=== PATIENT | female | born 1935 | race Caucasian/White ===

== ENCOUNTER 2016-12-28 19:16 | Inpatient (IN) | payer MEDICARE, MEDICAID ==
[~2016-12-28] VITALS: Ht 160 cm; Wt 49.9 kg
--- NOTE | 2016-12-28 19:18 | NUR ---
PT BIBRA FROM SNF TO ER BED 11 C/O DIFFUSE ABDOMINAL PAIN WORST IN THE LOWER QUADRANT. ABDOMEN APPEARS DISTENDED. PT DENIES N/V/D. PLACED ON MONITOR. NAD NOTED. AWAITING MD BENAVIDES.
--- NOTE | 2016-12-28 19:44 | NUR ---
DR DUMONT AT BEDSIDE FOR EVAL.
--- NOTE | 2016-12-28 19:55 | NUR ---
IV LINE STARTED BLOOD DRAWN AND SENT TO LAB.
[2016-12-28 19:59] LABS: EOSINOPHILS # (AUTO) 0.3 /CMM (0.0-0.7)
[2016-12-28 20:00] VITALS: BP 152/79
[2016-12-28] MEDS ORDERED: IV NS 0.9% 500 ML BAG IV ONE (20:00)
[2016-12-28 20:05] LABS: BASOPHILS # (AUTO) 0.4 /CMM (0.0-0.2); BASOPHILS % (AUTO) 2.7 % (0.0-2.0); EOSINOPHILS % (AUTO) 1.7 % (0.0-6.0); HEMATOCRIT 43 % (33-45); HEMOGLOBIN 14.2 g/dL (11.5-14.8); LYMPHOCYTES # (AUTO) 1.8 /CMM (0.8-4.8); LYMPHOCYTES % (AUTO) 11.7 % (20.0-44.0); MEAN CORPUSCULAR HEMOGLOBIN 29 PG (26.0-33.0); MEAN CORPUSCULAR HGB CONC 33 g/dl (31.0-36.0); MEAN CORPUSCULAR VOLUME 89 fL (82-100); MONOCYTES # (AUTO) 0.8 /CMM (0.1-1.30); MONOCYTES % (AUTO) 5.2 % (2.0-12.0); NEUTROPHILS # (AUTO) 12.5 /CMM (1.8-8.9); NEUTROPHILS % (AUTO) 78.7 % (43.0-81.0); PLATELET COUNT (AUTO) 308 /CMM (150-450); RED BLOOD CELL COUNT(AUTO) 4.85 MIL/uL (4.0-5.2); WHITE BLOOD COUNT (AUTO) 15.8 K/uL (4.3-11.0)
[2016-12-28 20:09] LABS: CALCIUM, SERUM 9.5 mg/dL (8.5-10.1); CARBON DIOXIDE 25 mmol/L (21-32); CHLORIDE 104 mmol/L (98-107); CREATININE 0.7 mg/dL (0.6-1.3); GLUCOSE 154 mg/dL (74-106); POTASSIUM 4.9 mmol/L (3.5-5.1); SODIUM SERUM 136 mmol/L (136-145); UREA NITROGEN, BLOOD 25 mg/dL (7-18)
[2016-12-28 21:21] LABS: APPEARANCE,URINE Clear (CLEAR); BILIRUBIN,URINE Negative (NEGATIVE); BLOOD, URINE Negative Ery/uL (NEGATIVE); COLOR,URINE Yellow (YELLOW); KETONES,URINE Negative (NEGATIVE); LEUKOCYTE ESTERASE ,URINE Negative (NEGATIVE); NITRITE, URINE Negative (NEGATIVE); PH,URINE 5.5 (5.0-8.0); PROTEIN,URINE Trace mg/dl (NEGATIVE); UGLUCOSE Negative (NEGATIVE); UROBILINOGEN,URINE 0.2 EU/dL (0.2)
[2016-12-28 21:35] LABS: BACTERIA,URINE None seen /HPF (None Seen); RBC,URINE 0-2 /HPF (0-2); SQUAMOUS EPITHELIAL CELL,UR Few /HPF (None Seen); WBC,URINE 0-2 /HPF (0-3)
--- NOTE | 2016-12-28 21:53 | NUR ---
REPORT GIVEN TO CHRIS. PT AWAITING TRANSFER TO FLOOR.
[2016-12-28] MEDS ORDERED: HYDR-3652 PO (22:02)
[2016-12-28] MEDS ORDERED: ATEN100T PO (22:02)
[2016-12-28] MEDS ORDERED: AMLO5TAB2 PO (22:02)
[2016-12-28] MEDS ORDERED: CANA300T PO (22:02)
[2016-12-28] MEDS ORDERED: SITA50TA PO (22:02)
[2016-12-28] MEDS ORDERED: INSU100V26 SQ (22:02)
[2016-12-28] MEDS ORDERED: METF500T4 PO (22:02)
[2016-12-28 22:30] VITALS: BP 152/79
--- NOTE | 2016-12-28 22:30 | NUR ---
MS RN ADMITTING NOTES: ADMITTED AN 81 YO FEMALE PATIENT WHO WAS SEEN IN THE ER DUE TO LOWER ABDOMINAL PAIN. PATIENT WAS BROUGHT TO [facility] FLOOR VIA GURNEY, AOX3, ON ROOM AIR, BREATHING EVEN AND UNLABORED. BREATH SOUNDS CLEAR TO AUSCULTATION. ABDOMEN LOOKS DISTENDED, BOWEL SOUNDS HYPOACTIVE. PATIENT STATES THAT SHE HAS PAIN POINTING OVER LOWER ABDOMEN TO HYPOGASTRIC AREA. PIV OVER R WIRST G 20 INTACT AND PATENT TO FLUSH. PROVIDED FOR COMFORT AND SAFETY. ADMITTING CARE DONE. PROVIDED FOR COMFORT AND SAFETY. BED IN LOWEST AND LOCKED POSITION, SIDERAILS UPX3. WILL CONT TO MONITOR.
[2016-12-28] MEDS ORDERED: MAGNESIUM HYDROXIDE 30 ML UDC PO PRN (23:00)
[2016-12-28] MEDS ORDERED: ONDANSETRON HCL/PF 4 MG/2 ML VIAL IVP PRN (23:00)
[2016-12-28] MEDS ORDERED: HYDROCODONE/APAP 5/325MG 1 EACH TABLET PO PRN (23:00)
[2016-12-28] MEDS ORDERED: HYDROCODONE/APAP 10/325MG 1 EA TABLET PO PRN (23:00)
[2016-12-28] MEDS ORDERED: MAG HYDROX/AL HYDROX/SIMETH 30 ML UDC PO PRN (23:00)
[2016-12-28] MEDS ORDERED: Z GUARD REMEDY 2 OZ OINT TP PRN (23:00)
[2016-12-28] MEDS ORDERED: DEXTROSE 50%-WATER 50 ML DISP.SYRIN IV PRN (23:00)
[2016-12-28] MEDS ORDERED: BISACODYL SUPP (10 MG) 10 MG/SUPP.RECT SUPP.RECT RC ONE (23:30)
[2016-12-28] MEDS: IV NS 0.9% 1,000 ML IV PRN (23:34)
[2016-12-28 23:35] LABS: TROPONIN I 0.034 ng/mL (0.00-0.056)
[2016-12-29] MEDS ORDERED: DOCUSATE SODIUM 100 MG CAPSULE PO ONE
[2016-12-29] MEDS ORDERED: BISACODYL SUPP (10 MG) 10 MG/SUPP.RECT SUPP.RECT RC ONE
[2016-12-29] MEDS: DOCUSATE SODIUM 100 MG CAPSULE PO SCH ×3 (00:11→16:18)
--- NOTE | 2016-12-29 00:12 | NUR ---
RN NOTES: PER SHAUNA FRANKLIN NP, MUST START BOTH DULCOLAX SUPP PER RECTUM AND DOCUSATE 100 MG PO NOW, NPO EXCEPT MEDS.
--- NOTE | 2016-12-29 00:17 | NUR ---
RN NOTES: BLOOD CULTURE DRAWN.
[2016-12-29] MEDS: PIPERACILLIN /TAZOBACTAM 3.375 G in IV D5W 50 ML IV SCH ×4 (00:44→17:33)
--- NOTE | 2016-12-29 01:00 | NUR ---
RN NOTES: SPOKE WITH TAE FROM [facility] RE IMMUNIZATION. PNEUMONIA VACCINE GIVEN 05/03/2016. INFLUENZA WAS FROM LAST YEAR 12/16/2015.
[2016-12-29] MEDS ORDERED: PIPERACILLIN /TAZOBACTAM 3.375 G VIAL IV ONE ×2 (04:28)
--- NOTE | 2016-12-29 05:49 | NUR ---
RN NOTES: PATIENT'S BLOOD SUGAR CHECKED AT 116 MG/DL. NO INSULIN COVERAGE INDICATED AT THIS TIME. MORNING CARE DONE, PATIENT HAS SOFT YELLOW BM. SUBMITTED SAMPLE TO LAB FOR STOOL CX.
[2016-12-29] MEDS: BLOOD SUGAR DIAGNOSTIC 1 EACH STRIP IN SCH ×4 (06:21→21:28)
[2016-12-29 06:40] LABS: BASOPHILS % (AUTO) 0.4 % (0.0-2.0); EOSINOPHILS # (AUTO) 0.3 /CMM (0.0-0.7); EOSINOPHILS % (AUTO) 2.5 % (0.0-6.0); HEMATOCRIT 39 % (33-45); HEMOGLOBIN 12.7 g/dL (11.5-14.8); LYMPHOCYTES % (AUTO) 18.6 % (20.0-44.0); MEAN CORPUSCULAR HEMOGLOBIN 29 PG (26.0-33.0); MEAN CORPUSCULAR HGB CONC 33 g/dl (31.0-36.0); MEAN CORPUSCULAR VOLUME 90 fL (82-100); MONOCYTES # (AUTO) 0.6 /CMM (0.1-1.30); MONOCYTES % (AUTO) 5.5 % (2.0-12.0); NEUTROPHILS # (AUTO) 7.9 /CMM (1.8-8.9); PLATELET COUNT (AUTO) 250 /CMM (150-450); RDW COEFFICIENT OF VARIATION 14.8 (11.5-15.0); RED BLOOD CELL COUNT(AUTO) 4.31 MIL/uL (4.0-5.2); WHITE BLOOD COUNT (AUTO) 10.8 K/uL (4.3-11.0)
--- NOTE | 2016-12-29 06:45 | NUR ---
MS RN CLOSING NOTES: PATIENT IN BED AOX2, WITH SOME PERIODS OF CONFUSION LAST NIGHT. ON ROOM AIR, BREATHING EVEN AND UNLABORED. APPEARS CALM AND IN NO DISTRESS. PIV OVER R WRIST G20 INTACT AND PATENT INFUSING WELL WITH NS RUNNING AT 60 ML/HR. DUE MEDS GIVEN. PROVIDED FOR COMFORT AND SAFETY. MORNING CARE RENDERED. MAINTAINED ON NPO EXCEPT MEDS. BED IN LOWEST AND LOCKED POSITION SIDERAILS UPX3. WILL ENDORSE TO AM RN FOR PAT.
[2016-12-29 07:09] LABS: ALANINE AMINOTRANSFERASE 20 U/L (12-78); ALBUMIN 2.9 g/dL (3.4-5.0); ALKALINE PHOSPHATASE 86 U/L (46-116); ASPARTATE AMINOTRANSFERASE 17 U/L (15-37); BILIRUBIN,TOTAL 0.3 mg/dL (0.2-1.0); CALCIUM, SERUM 8.9 mg/dL (8.5-10.1); CARBON DIOXIDE 25 mmol/L (21-32); CHLORIDE 107 mmol/L (98-107); CREATININE 0.5 mg/dL (0.6-1.3); GLUCOSE 117 mg/dL (74-106); MAGNESIUM 2.1 mg/dL (1.8-2.4); PHOSPHORUS 3.5 mg/dL (2.5-4.9); POTASSIUM 4.1 mmol/L (3.5-5.1); SODIUM SERUM 139 mmol/L (136-145); TOTAL PROTEIN, SERUM 6.2 g/dL (6.4-8.2); UREA NITROGEN, BLOOD 20 mg/dL (7-18)
[2016-12-29 07:15] LABS: TROPONIN I < 0.017 ng/mL (0.00-0.056)
[2016-12-29 07:19] LABS: CHOLESTEROL 162 mg/dL (<200); HDL CHOLESTEROL 41 mg/dL (40-60); LDL 101 mg/dL (0-99); THYROID STIMULATING HORMONE 1.353 uIU/mL (0.358-3.74); TRIGLYCERIDES 145 mg/dL (30-150)
--- NOTE | 2016-12-29 07:21 | NUR ---
MS RN OPENING NOTES: RECEIVED PATIENT IN BED AOX2-3, IN NO APPARENT DISTRESS, ON ROOM AIR, BREATHING EVEN AND UNLABORED. APPEARS CALM AND IN NO DISTRESS. IV TO RIGHT WRIST G20 INTACT AND PATENT INFUSING WELL WITH NS RUNNING AT 60 ML/HR. NPO STATUS EXCEPT MEDS SAFETY MEASURES RENDERED, BED LOWEST AND LOCKED POSITION SIDERAILS UPX3. WILL CONTINUE TO MONITOR.
[2016-12-29 08:00] VITALS: BP 146/74
[2016-12-29] MEDS: PANTOPRAZOLE 40 MG TABLET.DR PO SCH (08:18)
[2016-12-29] MEDS: METFORMIN 500 MG TABLET PO SCH ×2 (08:18→16:18)
[2016-12-29] MEDS: AMLODIPINE BESYLATE 5 MG TABLET PO SCH (08:19)
[2016-12-29] MEDS: LINAGLIPTIN 5 MG TABLET PO SCH (08:19)
[2016-12-29] MEDS: ATENOLOL 50 MG TABLET PO SCH (08:19)
[2016-12-29] MEDS ORDERED: SITAGLIPTIN PHOSPHATE 50 MG TABLET PO SCH (09:00)
--- NOTE | 2016-12-29 11:43 | NUR ---
WOUND CARE X1 LARGE BM NOTED. PATIENT CLEANED AND . NOTED MULTIPLE OPEN SKIN TO BILATERAL BUTTOCKS, UPPER POST ANTERIOR THIGH, ABRASIONS AND SCRATCHES TO LOWER ABDOMEN AND LOWER BACK. PATIENT VERBLAIZED THE URGE THE SCRATCH HERSELF D/T ITCHINESS. APPLIED Z-GUARD AND PROTECTED WITH MEPILEX. WOUND CARE CONSULT PENDING
--- NOTE | 2016-12-29 12:00 | NUR ---
MS/RN NOTES 1200 BLOOD SUGAR CHECK 86MG/DL. MD NOTIFIED REGARDING NPO STATUS. PATIENT CRYING AND VERBALIZING THE NEED TO EAT.
--- NOTE | 2016-12-29 15:13 | NUR ---
MS/RN NOTES PATIENT STARTED ON CLEAR LIQUID DIET, ADVANCE TOLERATED PER MD
[2016-12-29 16:00] VITALS: BP 122/62
[2016-12-29] MEDS: ACETAMINOPHEN 325 MG TABLET PO PRN ×2 (16:17→21:22)
--- NOTE | 2016-12-29 18:42 | NUR ---
ms/rn notes patient resting in bed comfortably. all due medications given, all needs met and attended. patient kept clean and comfortable. wound care done as ordered. iv fluids infusing gently. patient's diet advanced to full liquids, good appetite, eating 100 percent of meals tolerating well. patient noted with x2 large bm today. safety measures rendered, call light within easy reach. will endorse can to scientific writer for thea
[2016-12-29] MEDS: IV NS 0.9% 1,000 ML IV PRN (21:30)
[2016-12-30] MEDS: PIPERACILLIN /TAZOBACTAM 3.375 G in IV D5W 50 ML IV SCH ×5 (00:13→23:44)
--- NOTE | 2016-12-30 04:54 | NUR ---
RN NOTES HOURLY ROUNDINGS DONE, FALL AND SAFETY PRECAUTIONS OBSERVED AND INSTITUTED. BED LOCKED AND LOW, ALL NEEDS WITHIN REACH. NOTED PATIENT TO BE CONFUSED WHEN AWAKE, OBEYS SIMPLE COMMANDS AND IS COOPERATIVE. NO DISTRESS NOTED THROUGH THE NIGHT. PATIENT SLEPT WELL AND WAS EASILY AROUSABLE. ALL NEEDS ATTENDED.
[2016-12-30] MEDS: BLOOD SUGAR DIAGNOSTIC 1 EACH STRIP IN SCH ×4 (05:26→22:19)
--- NOTE | 2016-12-30 05:28 | NUR ---
RN NOTES ACCUCHECK AC bs:129MG/DL, WITHIN DEFINE PARAMETERS NO INSULIN GIVEN
--- NOTE | 2016-12-30 07:30 | NUR ---
RN OPENING NOTES RECEIVED PT. IN BED A&OX2. BREATHING UNLABORED AND EVENLY ON ROOM AIR. NO S/S OF ACUTE DISTRESS. BED IS IN LOW, LOCKED POSITION, 2 SIDE RAILS UP, AND INSTRUCTED PT. TO USE CALL LIGHT WITHIN REACH. WILL CONTINUE TO ASSESS AND MONITOR. PER MD PT. CAN BE DISCHARGED TODAY IN THE AFTERNOON.
[2016-12-30 08:00] VITALS: BP 147/73
[2016-12-30] MEDS: ATENOLOL 50 MG TABLET PO SCH (08:28)
[2016-12-30] MEDS: METFORMIN 500 MG TABLET PO SCH ×2 (08:28→18:02)
[2016-12-30] MEDS: ACETAMINOPHEN 325 MG TABLET PO PRN ×2 (08:28→20:16)
[2016-12-30] MEDS: LINAGLIPTIN 5 MG TABLET PO SCH (08:28)
[2016-12-30] MEDS: DOCUSATE SODIUM 100 MG CAPSULE PO SCH ×2 (08:28→18:03)
[2016-12-30] MEDS: PANTOPRAZOLE 40 MG TABLET.DR PO SCH (08:28)
[2016-12-30] MEDS: AMLODIPINE BESYLATE 5 MG TABLET PO SCH (08:29)
[2016-12-30] MEDS ORDERED: DOCU-25 PO (08:33)
--- NOTE | 2016-12-30 12:00 | NUR ---
RN NOTES SPOKE TO PT.'S NIECE ЮЛИЯ. PER ЮЛИЯ PT. CAME FROM [facility] WHICH SHE CAN NOT RETURN TO BECAUSE FACILITY IS CLOSING. PT. IS AWAITING NEW PLACEMENT AT [facility] IN [place]. WAS NOTIFIED.
[2016-12-30] MEDS: INSULIN REGULAR, HUMAN 100 UNIT/ML 3 ML VIAL SQ PRN ×2 (12:25→22:19)
[2016-12-30 16:00] VITALS: BP 122/59
[2016-12-30] MEDS: IV NS 0.9% 1,000 ML IV PRN (18:04)
--- NOTE | 2016-12-30 19:30 | NUR ---
RN CLOSING NOTES PT. IN BED A&OX2. BREATHING UNLABORED AND EVENLY ON ROOM AIR. NO S/S OF ACUTE DISTRESS. IV FLUIDS RUNNING AT 60 ML/HR. BED IS IN LOW, LOCKED POSITION, 2 SIDE RAILS UP, AND INSTRUCTED PT. TO USE CALL LIGHT WITHIN REACH. WILL ENDORSE REPORT TO WIND SCIENCE AND PLANNING NURSE.
[2016-12-30 20:00] VITALS: BP 142/72
--- NOTE | 2016-12-30 20:00 | NUR ---
RECEIVED PATIENT, AWAKE AND CRYING LYING ON BED, PER PATIENT "i WANT TO GO BACK TO MY BED" PATIENT COMFORTED, ORIENTED TO PLACE AND SITUATION. ASKED IF SHE IS IN PAIN, PATIENT WANTS TWO TYLENOLS.
--- NOTE | 2016-12-30 20:44 | NUR ---
PATIENT GIVEN TYLENOL MIXED WITH APPLE SAUCE. PATIENT STILL ANXIOUS, MD CALLED, CRISS ORDERED.
[2016-12-30] MEDS ORDERED: LORAZEPAM 0.5 MG TABLET ONE (20:46)
[2016-12-30] MEDS ORDERED: LORAZEPAM 0.5 MG TABLET PO PRN (21:00)
[2016-12-31] MEDS: PIPERACILLIN /TAZOBACTAM 3.375 G in IV D5W 50 ML IV SCH ×4 (05:09→23:30)
[2016-12-31] MEDS: BLOOD SUGAR DIAGNOSTIC 1 EACH STRIP IN SCH ×4 (07:30→21:59)
--- NOTE | 2016-12-31 07:30 | NUR ---
m/s cafeteria counter attendant: initial assessment received pt in bed awake, a/ox2-3, pt able to answer orientation correctly, but with periods of forgetfulness and disorientation to place and situation. reality orientation provided prn. no c/o abdominal pain, n/v or any discomfort. instructed to call for assistance. will continue to monitor.
[2016-12-31 08:00] VITALS: BP 156/82
[2016-12-31] MEDS: LINAGLIPTIN 5 MG TABLET PO SCH (08:25)
[2016-12-31] MEDS: PANTOPRAZOLE 40 MG TABLET.DR PO SCH (08:26)
[2016-12-31] MEDS: AMLODIPINE BESYLATE 5 MG TABLET PO SCH (08:26)
[2016-12-31] MEDS: METFORMIN 500 MG TABLET PO SCH ×2 (08:26→16:53)
[2016-12-31] MEDS: DOCUSATE SODIUM 100 MG CAPSULE PO SCH ×2 (08:26→16:53)
[2016-12-31] MEDS: ATENOLOL 50 MG TABLET PO SCH (08:26)
--- NOTE | 2016-12-31 09:15 | NUR ---
m/s vegetable grader: notes noted pt crying, stated, "i want to go home." reality orientation provided prn. encouraged to verbalized feelings. instructed to call for assistance. will continue to monitor.
--- NOTE | 2016-12-31 09:45 | NUR ---
WOUND CARE CONSULT: PT PRESENTS WITH EXCORIATION TO BUTTOCKS AND INNER THIGHS PRESENT ON ADMISSION. PT ALSO NOTED TO BE SCRATCHING HER SKIN. PT IS INCONTINENT OF STOOL AND URINE. SKIN TO BE KEPT CLEAN AND DRY. RECOMMENDATIONS MADE FOR SKIN CARE AND PROTECTION. DISCUSSED WITH NURSING STAFF. RECOMMEND LOW AIRLOSS BED. PATY ISOFLEX ADELIA BED TO BE PLACED WHEN AVAILABLE. WILL SEE PRN. JOHNSON IN AGREEMENT WITH PLAN OF CARE. Addendum: 12/31/16 at 0948 by LALITO JACOBSEN WNDNU Amended: Links added.
--- NOTE | 2016-12-31 10:05 | NUR ---
m/s pile driver operator barge mounted: md visit seen by dr. tellez. pt for d'c planning to snf today. order change from d'c home to snf per md. order carried out and acknowledged. will continue to monitor.
[2016-12-31] MEDS: INSULIN REGULAR, HUMAN 100 UNIT/ML 3 ML VIAL SQ PRN ×2 (11:56→22:02)
--- NOTE | 2016-12-31 12:00 | NUR ---
m/s trimming inspector: notes ja (case management) here and informed me that pt has no bed available today and it will be tomorrow. dr. tellez here and made aware. cn made aware.
[2016-12-31] MEDS: IV NS 0.9% 1,000 ML IV PRN (14:03)
[2016-12-31 16:00] VITALS: BP 135/70
--- NOTE | 2016-12-31 16:00 | NUR ---
m/s applications coordinator: notes in bed awake, resting comfortable. continue on ivf, infusing well. voiced no discomfort. reality orientation provided prn. will continue to monitor.
--- NOTE | 2016-12-31 18:22 | NUR ---
m/s kitchen worker: notes resting comfortable in bed. reality orientation provided prn. no c/o pain, n/v at this time. needs attended. call light within reach. will continue to monitor.
--- NOTE | 2016-12-31 19:30 | NUR ---
MS RN OPENING NOTES: PATIENT IN BED, AOX2, ON ROOM AIR, BREATHING EVEN AND UNLABORED. APPEARS CALM AND IN NO DISTRESS, DENIES PAIN, ONLY STATING THAT SHE WANTS TO "GO BACK TO HER HOME". PIV OVER RFA G 22 INTACT AND PATENT, INFUSING WELL WITH NS RUNNING AT 60 ML/HR. PROVIDED FOR COMFORT AND SAFETY. BED IN LOWEST AND LOCKED POSITION, SIDERAILS UP X 3 , BED ALARMS ON . WILL CONT TO MONITOR.
[2016-12-31 20:00] VITALS: BP 124/61
[2016-12-31 20:48] VITALS: BP 124/61
--- NOTE | 2016-12-31 22:18 | NUR ---
RN NOTES: BLOOD SUGAR IS 173 MG/DL. ADMINISTERED 3 UNITS REGULAR INSULIN PER SCALE. LIGHT SNACK GIVEN.
[2017-01-01] MEDS: PIPERACILLIN /TAZOBACTAM 3.375 G in IV D5W 50 ML IV SCH ×2 (05:53→11:39)
[2017-01-01] MEDS: BLOOD SUGAR DIAGNOSTIC 1 EACH STRIP IN SCH ×2 (06:49→12:10)
[2017-01-01] MEDS: INSULIN REGULAR, HUMAN 100 UNIT/ML 3 ML VIAL SQ PRN (06:52)
--- NOTE | 2017-01-01 06:59 | NUR ---
MS RN CLOSING NOTES: PATIENT IN BED, AOX2, ON ROOM AIR, BREATHING EVEN AND UNLABORED. APPEARS CALM AND IN NO DISTRESS. WAS ABLE TO HAVE GOOD SLEEP LAST NIGHT. PIV OVER RFA G 22 INTACT AND INFUSING WELL WITH NS RUNNING AT 60 ML/HR. DUE MEDS GIVEN. PROVIDED FOR COMFORT AND SAFETY. MORNING CARE RENDERED. WOUND TREATMENT DONE OVER SACRAL, PERINEAL AREA. NO ACUTE CHANGE IN CONDITION NOTED THROUGH SHIFT. BED IN LOWEST AND LOCKED POSITION, SIDERAILS UPX3. WILL ENDORSE TO AM RN FOR PAT.
[2017-01-01 08:00] VITALS: BP 155/76
--- NOTE | 2017-01-01 08:00 | NUR ---
m/s veterinary poultry inspector: initial assessment received pt in bed awake, a/ox2-3, pt able to answer orientation correctly, but with periods of forgetfulness and disorientation to place and situation. reality orientation provided prn. no c/o abdominal pain, n/v or any discomfort. instructed to call for assistance. will continue to monitor.
[2017-01-01] MEDS: ATENOLOL 50 MG TABLET PO SCH (08:46)
[2017-01-01] MEDS: METFORMIN 500 MG TABLET PO SCH (08:46)
[2017-01-01] MEDS: DOCUSATE SODIUM 100 MG CAPSULE PO SCH (08:46)
[2017-01-01 08:47] VITALS: BP 155/76
[2017-01-01] MEDS: AMLODIPINE BESYLATE 5 MG TABLET PO SCH (08:47)
[2017-01-01] MEDS: PANTOPRAZOLE 40 MG TABLET.DR PO SCH (08:47)
[2017-01-01] MEDS: LINAGLIPTIN 5 MG TABLET PO SCH (08:47)
--- NOTE | 2017-01-01 11:54 | NUR ---
m/s auxiliary power equipment operator: md visit seen and examined by dr. sloan at this time with order okay to discharge to snf. case management making arrangement and awaiting for room availability for today. pt made aware.
--- NOTE | 2017-01-01 13:15 | NUR ---
m/s vice president of academic affairs: notes case management informed me that pt is accepted at the [facility] and will be leaving at 1600. lonnie (niece) notified and made aware, spoke to her over the phone.
--- NOTE | 2017-01-01 13:55 | NUR ---
m/s digital printer operator: notes report given to eulalia (nurse from [facility]) for continuity of care. eta at 1600. pt made aware.
--- NOTE | 2017-01-01 16:15 | NUR ---
m/s revenue specialist: notes med response here and report given to one of the crew. h/l removed with tip intact with no bleeding, no redness, and no swelling noted. all belongings and papers given to the crew.
--- NOTE | 2017-01-01 16:24 | NUR ---
m/s advertising photographer: discharged discharged to snf via ambulance accompanied by 2 crew in stable condition with belongings.
== END 2017-01-01 16:20 | DRG 391 ==
LOC: ER 19:17 → MED 22:02
PROVIDERS: ADMIT Nurse Practitioner Acute Care; ATTEND Nurse Practitioner Acute Care
DX: K59.00 Constipation, unspecified (principal); N17.0 Acute kidney failure with tubular necrosis; G93.40 Encephalopathy, unspecified; F03.90 Unspecified dementia, unspecified severity, without behavioral disturbance, psychotic disturbance, mood disturbance, and anxiety; D72.829 Elevated white blood cell count, unspecified; E11.9 Type 2 diabetes mellitus without complications; K57.30 Diverticulosis of large intestine without perforation or abscess without bleeding; I10 Essential (primary) hypertension; Z87.81 Personal history of (healed) traumatic fracture; Z79.4 Long term (current) use of insulin; Z79.84 Long term (current) use of oral hypoglycemic drugs; K76.0 Fatty (change of) liver, not elsewhere classified; M81.0 Age-related osteoporosis without current pathological fracture; M19.90 Unspecified osteoarthritis, unspecified site; K80.20 Calculus of gallbladder without cholecystitis without obstruction; Z91.81 History of falling
CPT/HCPCS: 36415; 80048-TC; 80053-TC; 80061-TC; 81000-TC; 82962-TC; 83690-TC; 83735-TC; 84100-TC; 84443-TC; 84484-TC; 85025-TC; 87040-TC; 87045-TC; 87081-TC; 87086-TC; A6253; J1815; J2543; J7030; J7040; J7060